=== PATIENT | male | born 1990 | race Caucasian/White ===

== ENCOUNTER 2018-11-30 16:22 | Emergency (ER) | payer SELFPAY ==
[~2018-11-30] VITALS: Ht 182.9 cm; Wt 77.1 kg
--- NOTE | 2018-11-30 16:30 | ED Upper Extremity ---
General Chief Complaint: Laceration Stated Complaint: LT HAND LAC Source: patient History of Present Illness Date Seen by Provider: Nov 30, 2018 Time Seen by Provider: 16:29 28 y/o R hand dominant M presents with L pinky finger ulnar aspect laceration from slicer at work. Accident occurred around 10-1030 am. Last TD unknown. Hx of hep C. No numbness or tingling. Wrapped finger and continued to work until coming to the ED. Allergies and Home Medications Allergies Coded Allergies: No Known Drug Allergies (Unverified , 11/30/18) Patient Home Medication List Home Medication List Reviewed: Yes Review of Systems Constitutional: No chills, No fever Psychiatric/Neurological: Denies Numbness, Denies Tingling, Denies Weakness Past [id number]-[id number] Hx Past Med/Social Hx: Reviewed Nursing Past Med/Soc Hx Patient Social History Recent Foreign Travel: No Contact w/Someone Who Travel: No Physical Exam Vital Signs Capillary Refill : Height, Weight, BMI Height: '" Weight: lbs. oz. kg; BMI Method: General Appearance: WD/WN, no apparent distress HEENT: PERRL/EOMI, normal ENT inspection Neck: non-tender, full range of motion, supple, normal inspection Cardiovascular: normal peripheral pulses, regular rate, rhythm, no edema, no gallop, no JVD, no murmur Respiratory: chest non-tender, lungs clear, normal breath sounds, no respiratory distress, no accessory muscle use Hand: Left, laceration (L pinky finger ulnar aspect laceration) Neurologic/Psychiatric: no motor/sensory deficits, alert, normal mood/affect, oriented x 3 Skin: normal color, warm/dry Procedures/Interventions Wound Location: Upper Extremities (L pinky) Wound's Depth, Shape: linear, flap Wound Explored: no foreign body removed Irrigated w/ Saline (ccs): 250 Betadine Prep?: Yes Anesthesia: 1% Lidocaine Suture: Ethlion Suture Size: 6-0 Number of Sutures: 3 Layer Closure?: 1 Progress/Results/Core Measures Results/Orders My Orders Orders - JULIA DORMAN MD Dipht,Jeanmarie(Acell),Tet Adult (Boostrix (11/30/18 16:45) Lidocaine 1% Inj 20 Ml (Xylocaine 1% Inj (11/30/18 16:45) Medications Given in ED Current Medications Medications Dose Ordered Sig/Cristian Route Start Time Stop Time Status Last Admin Dose Admin Diphtheria/ Tetanus/Acell Pertussis 0.5 ml ONCE ONCE IM 11/30/18 16:45 11/30/18 16:46 DC 11/30/18 16:48 0.5 ML Lidocaine HCl 20 ml ONCE ONCE INJ 11/30/18 16:45 11/30/18 16:46 DC 11/30/18 16:51 5 ML Progress Progress Note : Progress Note discussed wound care instructions, no prolonged submersion in water, due to prolonged open time there is an increased risk of infection, will rx abx. strict return precautions discussed. Departure Impression Primary Impression: Laceration of finger of left hand Disposition: HOME, SELF-CARE Condition: Improved Departure-Patient Inst. Decision time for Depature: 17:13 Referrals: NO,LOCAL PHYSICIAN (PCP) Primary Care Physician Patient Instructions: Laceration Repair With Stitches (DC) Add. Discharge Instructions: All discharge instructions reviewed with patient and/or family. Voiced understanding. JULIA DORMAN MD Nov 30, 2018 16:30
[2018-11-30] MEDS ORDERED: TETANUS,DIPTH,PERTUSS P/F (BOOSTRIX) 0.5 ML VIAL IM ONE (16:45)
[2018-11-30] MEDS ORDERED: LIDOCAINE 1% INJ 20 ML 20 ML VIAL INJ ONE (16:45)
[2018-11-30] MEDS ORDERED: AMOX500C2 PO (17:19)
[2018-11-30 17:29] VITALS: BP 107/73
--- NOTE | 2018-11-30 17:29 | NUR ---
Pt discharged to home after review of home instructions. Pt educated to keep hand clean and dry. No submersion into dirty water or soaking in water. Pt may shower and then pat dry the surtured area. Return in 7 days as instructed for removal of sutures.
== END 2018-11-30 17:29 | disposition home or self-care (01) ==
LOC: ER FS 16:24
DX: S61.217A Laceration without foreign body of left little finger without damage to nail, initial encounter (principal); Z23 Encounter for immunization; W29.0XXA Contact with powered kitchen appliance, initial encounter; Y92.59 Other trade areas as the place of occurrence of the external cause; Y99.0 Civilian activity done for income or pay
CPT/HCPCS: 12001; 90715